=== PATIENT | male | born 1960 | race African-American/Black ===

== ENCOUNTER 2017-12-04 14:01 | Emergency (ER) | payer OTHER ==
[2017-12-04 14:43] VITALS: BP 166/98
--- NOTE | 2017-12-04 14:49 | ER Document Report ---
ED Medical Screen (RME) - General Chief Complaint: Arm Problem Stated Complaint: ELBOW SWELLING Time Seen by Provider: 12/04/17 14:37 Mode of Arrival: Ambulatory Information source: Patient Notes: 57-year-old man with a history of diabetes and hypertension who presents to the emergency room with left elbow swelling. He denies fever, redness. The pain is minimal. He has been doing some work cutting logs outside. TRAVEL OUTSIDE OF THE [place] IN LAST 30 DAYS: No - HPI Onset: Other - Past month. Onset/Duration: Gradual Quality of pain: Dull Severity: Mild Pain Level: 1 Associated Symptoms: denies: Chest pain, Fever, Shortness of breath Exacerbated by: Movement Relieved by: Denies Similar symptoms previously: No Recently seen / treated by doctor: No - Related Data Smoking: Non-smoker Frequency of alcohol use: None Drug Abuse: None Allergies/Adverse Reactions: No Known Allergies Allergy (Verified 12/04/17 14:04) Past Medical History - General Information source: Patient - Social History Cigarette use (# per day): No Chew tobacco use (# tins/day): No Frequency of alcohol use: None Drug Abuse: None Lives with: Family Family history: None - Past Medical History Cardiac Medical History: Reports: Hx Hypertension Pulmonary Medical History: Reports: None EENT Medical History: Reports: None Neurological Medical History: Reports: None Endocrine Medical History: Reports: Hx Diabetes Mellitus Type 2 Renal/ Medical History: Reports: None. Denies: Hx Peritoneal Dialysis Malignancy Medical History: Reports None Skin Medical History: Reports None Psychiatric Medical History: Reports: None Traumatic Medical History: Reports: None Infectious Medical History: Reports: None Surgical Hx: Negative Review of Systems - Review of Systems Constitutional: denies: Chills, Fever EENT: No symptoms reported Cardiovascular: No symptoms reported Respiratory: No symptoms reported Gastrointestinal: No symptoms reported Genitourinary: No symptoms reported Male Genitourinary: No symptoms reported Musculoskeletal: See HPI Skin: See HPI Hematologic/Lymphatic: No symptoms reported Neurological/Psychological: No symptoms reported Physical Exam - Vital signs Vitals: Temp Pulse Resp BP Pulse Ox 98.4 F 119 H 18 177/106 H 98 12/04/17 14:09 12/04/17 14:09 12/04/17 14:09 12/04/17 14:09 12/04/17 14:09 Notes: Physical exam: GENERAL: The 57-year-old man, alert and oriented 3, no acute distress HEAD: Atraumatic, normocephalic. EYES: Pupils equal round and reactive to light, extraocular movements intact, sclera anicteric, conjunctiva are normal. ENT: Moist mucous membranes. NECK: Normal range of motion, supple LUNGS: Breath sounds clear to auscultation bilaterally and equal. No wheezes rales or rhonchi. HEART: Regular rate and rhythm without murmurs, rubs or gallops. ABDOMEN: Soft, normoactive bowel sounds. No tenderness to palpation. No guarding, no rebound. No masses appreciated. EXTREMITIES: Normal range of motion, no pitting or edema. No clubbing or cyanosis. Patient does have left olecranon bursitis. There is no warmth over the bursa. There is swelling without any pain. There is no fluctuance. There is no redness. There is no evidence of infection. NEUROLOGICAL: Cranial nerves II through XII grossly intact. Normal speech, moving all extremities. PSYCH: Normal mood, normal affect. SKIN: Warm, Dry, normal turgor, no rashes or lesions noted. Course - Re-evaluation Re-evalutation: 12/04/17 15:02 Patient looks good on exam. He is afebrile. He has a noninfected bursitis of the left olecranon. We will treated conservatively with nonsteroidals anti- inflammatories and follow-up with orthopedic. - Vital Signs Vital signs: Temp Pulse Resp BP Pulse Ox 98.4 F 119 H 18 166/98 H 98 12/04/17 14:09 12/04/17 14:09 12/04/17 14:09 12/04/17 14:43 12/04/17 14:09 Doctor's Discharge - Discharge Clinical Impression: Left elbow bursitis Condition: Stable Disposition: HOME, SELF-CARE Instructions: Olecranon Bursitis ([facility]) Additional Instructions: As we discussed, there is no evidence of infection at this time. Take the medicines as prescribed. I would like you to call the orthopedic office later today for the next available appointment. I left the number on the chart. Follow-up with your primary care doctor as well. Return to the emergency room for worsening pain, worsening swelling, fever ( temperature greater than 100.5), redness or any concerns or getting worse. Prescriptions: Ibuprofen 400 mg PO Q6HP PRN #20 tablet PRN Reason: Referrals: RODERICK RUIZ MD [ACTIVE STAFF] - Follow up as needed (This is the number the orthopedic office)
== END 2017-12-04 14:54 | disposition home or self-care (01) ==
LOC: ER 14:01
DX: M70.32 Other bursitis of elbow, left elbow (principal); E11.9 Type 2 diabetes mellitus without complications; I10 Essential (primary) hypertension
CPT/HCPCS: 99283